=== PATIENT | male | born 1995 | race Caucasian/White ===

== ENCOUNTER 2017-04-21 06:35 | Emergency (ER) | payer BC ==
[2017-04-21] MEDS ORDERED: NS 0.9% 1000 ML* 1,000 ML IV ONE (06:55)
[2017-04-21] MEDS: Aspirin Low Dose CHEW TAB* 81 MG PO ONE ×2 (07:20→07:23)
--- NOTE | 2017-04-21 07:20 | ED ---
Keith Heredia,Otto, scribed for Sandra Rendon MD on 04/21/17 at 0701 . HPI Chest Pain - HPI Summary HPI Summary: This 21 y/o male presents to ED for acute midsternal CP since 1800 PM last evening. Pt had trouble sleeping due to chest pain. Deep breath makes pain worse. Pain is worse when he lies down. Upright position makes pain better. Pt reports positive FHx of [place] in maternal side of the family before the age of 50, and expresses concerns. He denies any PMHx, but does report that he has had prior episodes of similar CP while sick "with cold". Nonsmoker. Weekly drinker. Negative substance abuse. Flu vaccine is NOT UTD. Pt lives alone. Pt is a [employer] student. - History of Current Complaint Chief Complaint: EDChestPainROMI Hx Obtained From: Patient Onset/Duration: Started Hours Ago, Atraumatic, Still Present Time of Onset: 18:00 - 04/20/17 Timing: Constant, Lasting Hours Initial Severity: Moderate Current Severity: Mild Pain Intensity: 3 Pain Scale Used: 0-10 Numeric Chest Pain Location: Mid Sternal Chest Pain Radiates: No Character: Dull/Aching Aggravating Factor(s): Position - lying down makes pain worse, Deep Breaths Alleviating Factor(s): Upright Position Associated Signs and Symptoms: Positive: Chest Pain. Negative: Shortness of Breath, Fever, Diaphoresis, Nausea - Risk Factors TAD Risk Factors: Family Hx AMI/ACS Risk Factors: Family History - Allergy/Home Medications Allergies/Adverse Reactions: Allergies Allergy/AdvReac Type Severity Reaction Status Date / Time No Known Allergies Allergy Verified 04/21/17 06:39 PMH/Surg Hx/FS Hx/Imm Hx Previously Healthy: Yes Endocrine/Hematology History: Denies: Hx Diabetes Cardiovascular History: Denies: Hx Myocardial Infarction - Surgical History Surgery Procedure, Year, and Place: no surgical hx - Immunization History Date of Tetanus Vaccine: utd Date of Influenza Vaccine: none Infectious Disease History: No Infectious Disease History: Denies: Traveled Outside the US in Last 30 Days - Family History Known Family History: Positive: Cardiac Disease - Social History Occupation: Student - [employer] Student Lives: Alone Alcohol Use: Weekly Substance Use Type: Reports: None Smoking Status (MU): Never Smoked Tobacco Review of Systems Negative: Fever Positive: Chest Pain Negative: Shortness Of Breath Gastrointestinal: Negative Neurological: Negative Psychological: Normal All Other Systems Reviewed And Are Negative: Yes Physical Exam Triage Information Reviewed: Yes Vital Signs On Initial Exam: Initial Vitals Temp Pulse Resp BP Pulse Ox 97.8 F 98 16 157/91 97 04/21/17 06:42 04/21/17 06:42 04/21/17 06:42 04/21/17 06:42 04/21/17 06:42 Vital Signs Reviewed: Yes Appearance: Positive: Well-Appearing, No Pain Distress, Obese Skin: Positive: Warm, Skin Color Reflects Adequate Perfusion, Dry Head/Face: Positive: Normal Head/Face Inspection Eyes: Positive: EOMI, NESTOR ENT: Positive: Normal ENT inspection Neck: Positive: Supple, Nontender, No Lymphadenopathy Respiratory/Lung Sounds: Positive: Clear to Auscultation, Breath Sounds Present Cardiovascular: Positive: RRR, Pulses are Symmetrical in both Upper and Lower Extremities. Negative: Murmur, Rub, Leg Edema Left, Leg Edema Right Abdomen Description: Positive: Nontender, No Organomegaly, Soft. Negative: Bruit, Distended, Guarding, Hepatomegaly, McBurney's Point Tenderness, Peritoneal Signs, Pulsatile Mass, Splenomegaly Bowel Sounds: Positive: Present Musculoskeletal: Positive: Strength/ROM Intact. Negative: Edema Left, Edema Right Neurological: Positive: Sensory/Motor Intact, Alert, Oriented to Person Place, Time, Facial Symmetry, Speech Normal Psychiatric: Positive: Affect/Mood Appropriate - [place] Coma Scale Coma Scale Total: 15 Diagnostics - Vital Signs Vital Signs Temp Pulse Resp BP Pulse Ox 04/21/17 06:42 97.8 F 98 16 157/91 97 - Laboratory Lab Statement: Any lab studies that have been ordered have been reviewed, and results considered in the medical decision making process. - Radiology CXR Radiology Interpretation Completed By: Radiologist - Image pending at this moment (0700 AM). See EMR for official report - EKG 0647 Cardiac Rate: NL EKG Rhythm: Sinus Rhythm EKG Interpretation: Normal HERON conduction. [id number]. Normal axis. No STEMI Chest Pain Course/Dx - Course Course Of Treatment: 21 yo M with chest pain, +fam hx CAD/[place] before the age of 50 as only risk factor. EKG is normal. Care to Dr. Yee at change of shift with labs and xray pending. ASA 324mg given. - Chest Pain Differential Diagnosis/HQI/PQRI: Acute [place], ACS, Chest Wall, GI Disease, Lower Respiratory Infection, Pulmonary Embolism - Diagnoses Provider Diagnoses: Chest pain, Elevated BP without diagnosis of hypertension Discharge - Discharge Plan Condition: Stable Disposition: OTHER Discharge Disposition Comment: Signed out at shift change. Pending CXR and bloodwork. Referrals: [facility] [Primary Care Provider] - The documentation as recorded by the Keith silva Soohyun accurately reflects the service I personally performed and the decisions made by Justice hamilton Barbara J, MD.
[2017-04-21 07:22] LABS: Hematocrit 48 % (42-52); Hemoglobin 16.4 g/dl (14.0-18.0); Mean Corpuscular HGB Conc 34 g/dl (31-36); Mean Corpuscular Hemoglobin 29 pg (27-31); Mean Corpuscular Volume 86 fL (80-94); Mean Platelet Volume 9 um3 (7.4-10.4); Red Cell Distribution Width 13 % (10.5-15); White Blood Count 9.7 10^3/ul (3.5-10.8)
[2017-04-21] MEDS ORDERED: Ketorolac INJ* 30 MG/ML 1 ML VIAL IV PUSH ONE (07:23)
[2017-04-21 07:34] LABS: Albumin 4.4 g/dL (3.2-5.2); BUN/Creatinine Ratio 13.3 (8-20); Calcium 9.6 mg/dL (8.6-10.3); EGFR African American 124.2 (>60); EGFR Non-African American 96.6 (>60); Globulin 3.2 g/dL (2-4); Potassium 3.4 mmol/L (3.5-5.0); Total Bilirubin 0.7 mg/dL (0.2-1.0); Total Protein 7.6 g/dL (6.4-8.9)
[2017-04-21] MEDS ORDERED: Potassium Chlor TAB* 20 MEQ TAB.ER PO ONE (08:03)
--- NOTE | 2017-04-21 08:07 | RAD ---
HISTORY: Chest pain COMPARISONS: None VIEWS:1: Single frontal portable view of the chest at 7:05 AM FINDINGS: LINES AND TUBES: None. CARDIOMEDIASTINAL SILHOUETTE: The cardiomediastinal silhouette is normal for portable technique. PLEURA: The costophrenic angles are sharp. No pleural abnormalities are noted. LUNG PARENCHYMA: The lungs are clear. ABDOMEN: The upper abdomen is clear. There is no subphrenic gas. BONES AND SOFT TISSUES: No bone or soft tissue abnormalities are noted. IMPRESSION: NO ACTIVE CARDIOPULMONARY DISEASE.
[2017-04-21 08:08] VITALS: BP 134/91
[2017-04-21 08:08] LABS: TSH (Thyroid Stimulating Horm) 2.85 mcIU/mL (0.34-5.60)
--- NOTE | 2017-04-21 17:52 | ED ---
Mitesh Heredia Rebecca, scribed for Mateo Yee MD on 04/21/17 at 0724 . Progress - Progress Note Progress Note: Pt was signed out from Dr. Rendon at 0700 this morning. He is a 21 y/o M who presents to ED c/o CP. Pain began at 1800 last night and is characterized as tightness/a dull ache. Pain is midsternal with radiation upwards to "below my Loki's apple" and while sitting up, pain is 2/10, while laying down it is ranked 7/10. Reports pain is slightly reproducible upon deep breaths. Sx aggravated by laying down, alleviated by nothing. Additionally c/o nasal congestion secondary to "head cold." Denies fever, diaphoresis, SOB, N/V, syncope, post-nasal drip, sinus pain and sore throat. - Results/Orders Results/Orders: Physical Exam: VITAL SIGNS: Reviewed. GENERAL: ~Patient is a well-developed and nourished male who is lying comfortable in the stretcher. ~Patient is not in any acute respiratory distress. HEAD AND FACE: No signs of trauma. ~No ecchymosis, hematomas or skull depressions. He has some sinus congestion. EYES: PERRLA, EOMI x 2, No injected conjunctiva, no nystagmus. EARS: Hearing grossly intact. Ear canals and tympanic membranes are within normal limits. MOUTH: Oropharynx within normal limits. NECK: Supple, trachea is midline, no adenopathy, no JVD, no carotid bruit, no c- spine tenderness, neck with full ROM. CHEST: Symmetric, no tenderness at palpation LUNGS: Clear to auscultation bilaterally. No wheezing or crackles. CVS: Regular rate and rhythm, S1 and S2 present, no murmurs or gallops appreciated. ABDOMEN: Soft, non-tender. No signs of distention. No rebound no guarding, and no masses palpated. Bowel sounds are normal. EXTREMITIES: FROM in all major joints, no edema, no cyanosis or clubbing. NEURO: Alert and oriented x 3. No acute neurological deficits. Speech is normal and follows commands. SKIN: Dry and warm - EKG/XRAY/CT XRAY: chest Xray Comments: Radiologist - NO ACTIVE CARDIOPULMONARY DISEASE Re-Evaluation - Re-Evaluation First Eval Re-Evaluation Time: 10:07 Change: Improved Comment: After Toradol, pain is resolved, ranked 0/10. Course/Dx - Course Course Of Treatment: Pt was signed out from Dr. Rendon at 0700 this morning. He is a 21 y/o M who presents to ED c/o CP. Pain began at 1800 last night and is characterized as tightness/a dull ache. Pain is midsternal with radiation upwards to "below my Loki's apple" and while sitting up, pain is 2/10, while laying down it is ranked 7/10. Reports pain is slightly reproducible upon deep breaths. Sx aggravated by laying down, alleviated by nothing. Additionally c/o nasal congestion secondary to "head cold." Denies fever, diaphoresis, SOB, N/V, syncope, post-nasal drip, sinus pain and sore throat. Test results without any significant abnormality except potassium of 3.4 and CPK of 246. CXR negative for acute intrathoracic pathology. EKG is normal sinus rhythm at [address] elevations. Troponin x 2 are negative. The pt was given Toradol for the pain and all of his sx have resolved. He was also given IVF for the increase CPK. The pt is asymptomatic at this time. Pt was observed for approximately 3.5 hours in the ED and the sx did not return. Seeing as the pt does not have any comorbidities, the pt will be D/C to home with follow-up with PCP. Pt is hemodynamically stable and A&Ox3. I discussed all the findings and test results with the patient. Patient was instructed to return to the emergency room immediately if any of the symptoms return or worsens. Plan of care was discussed with the patient and understands and agrees. All questions were answered at patient satisfaction. There were no further complaints or concerns. Lung exam before discharge: CTA B/L. Good air exchange. No wheezing or crackles heard. CVS: S1 and S2 present. No murmurs appreciated. Patient is alert and oriented x 3. Patient is hemodynamically stable. Patient will be discharged home with follow up PCP in the next 2-3 days - Diagnoses Provider Diagnoses: Chest pain, Elevated BP without diagnosis of hypertension The documentation as recorded by the Mitesh silva Rebecca accurately reflects the service I personally performed and the decisions made by me, Mateo Yee MD.
== END 2017-04-21 10:18 | disposition home or self-care (01) ==
LOC: ED 06:35
DX: R07.9 Chest pain, unspecified (principal); R03.0 Elevated blood-pressure reading, without diagnosis of hypertension
CPT/HCPCS: 36415; 71010; 80053; 82550; 82553; 83605; 83735; 84443; 84484; 85025; 85379; 85610; 85730; 93005; 99283; A9270-GY; J1885

== ENCOUNTER 2017-06-08 04:49 | Inpatient (IN) | payer BC ==
[2017-06-08 05:37] LABS: Hematocrit 47 % (42-52); Hemoglobin 16.5 g/dl (14.0-18.0); Mean Corpuscular HGB Conc 36 g/dl (31-36); Mean Corpuscular Hemoglobin 30 pg (27-31); Mean Corpuscular Volume 84 fL (80-94); Mean Platelet Volume 9 um3 (7.4-10.4); Red Blood Count 5.54 10^6/ul (4.0-5.4); Red Cell Distribution Width 13 % (10.5-15); White Blood Count 9.8 10^3/ul (3.5-10.8)
[2017-06-08 05:54] LABS: Urine Bacteria Absent (Absent); Urine Bilirubin Negative (Negative); Urine Glucose Negative (Negative); Urine Nitrite Negative (Negative)
[2017-06-08 05:56] LABS: Benzodiazepine Urine Screen None Detected (None Detect)
[2017-06-08 06:00] LABS: ALT 71 U/L (7-52); Acetaminophen < 15 mcg/mL; Albumin 4.8 g/dL (3.2-5.2); Alcohol 73 mg/dL (<10); Alkaline Phosphatase 75 U/L (34-104); BUN/Creatinine Ratio 8.3 (8-20); Blood Urea Nitrogen 9 mg/dL (6-24); CO2 Carbon Dioxide 24 mmol/L (22-32); Calcium 9.4 mg/dL (8.6-10.3); Chloride 102 mmol/L (101-111); EGFR African American 109.8 (>60); EGFR Non-African American 85.4 (>60); Globulin 2.8 g/dL (2-4); Glucose 106 mg/dL (70-100); Salicylate < 2.50 mg/dL (<30); Sodium 136 mmol/L (133-145); Total Protein 7.6 g/dL (6.4-8.9)
[2017-06-08 06:02] LABS: Anion Gap 10 mmol/L (2-11)
[2017-06-08 06:11] LABS: TSH (Thyroid Stimulating Horm) 1.23 mcIU/mL (0.34-5.60)
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
[2017-06-08] MEDS ORDERED: Acetaminophen TAB* 325 MG PO ONE (13:20)
[2017-06-08] MEDS ORDERED: Acetaminophen TAB* 325 MG ONE (13:23)
--- NOTE | 2017-06-08 16:05 | ED ---
Natividad Heredia Alfonso, scribed for Mateo Yee MD on 06/08/17 at 1605 . Progress - Progress Note Progress Note: This patient was signed out from Dr. Ziegler, pending disposition, awaiting MHE. After MHE, Dr. Camilo. The patients condition is stable and he will be admitted to [facility] with Dx of depressive disorder. - Consult/PCP Time Called: 13:53 Course/Dx - Diagnoses Provider Diagnoses: Depressive disorder The documentation as recorded by the Natividad silva Alfonso accurately reflects the service I personally performed and the decisions made by Joselito hamilton Walter, MD.
[2017-06-08] MEDS ORDERED: Al Hydrox/Mg Hydrox/Simet LIQ* 30 ML UDC PO PRN (17:05)
[2017-06-08] MEDS ORDERED: Acetaminophen TAB* 325 MG PO PRN (17:05)
[2017-06-09] MEDS: Vitamin THERAPEUTIC TAB PO SCH (09:45)
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
[2017-06-10 08:33] VITALS: BP 112/65
[2017-06-10] MEDS: Vitamin THERAPEUTIC TAB PO SCH (09:44)
[2017-06-10] MEDS ORDERED: Calcium Carbonate CHEW TAB* 500 MG (TUMS) PO PRN (10:43)
--- NOTE | 2017-06-10 15:20 | DS ---
CC: [facility]* DISCHARGE SUMMARY: DATE OF ADMISSION: 06/08/2017. DATE OF DISCHARGE: 06/10/2017. SUPERVISING PSYCHIATRIST: Prashanth Leung MD* (dictated by MICHELLE Tadeo) . DISCHARGE DIAGNOSIS: Adjustment disorder with emotional overlay, rule out posttraumatic stress disorder. CONDITION AT THE TIME OF DISCHARGE: Improved. 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 He reports this will also help him to refrain from alcohol use and states understanding that alcohol is depressant and likely contributory to emotional reactions in the past few days. He spoke with his parents yesterday and he said that this went well. His father had offered to come to [place] and Ronni told him that that was not necessary and father has asked him to call him every day, which he will do, and he has plans to go home over the weekend break. Ronni denies suicidal ideation, depression, or anxiety. He reported indigestion and requested to be able to use Tums. Denies need otherwise for medications. He was encouraged to follow up with [facility] and has an appointment today at 3:40 p.m. MENTAL STATUS EXAM: The patient is well appearing, adequately groomed and dressed in his own clothing. He has short brown hair and moderate built, somewhat overweight. He appears stated age. He is pleasant and cooperative. He answers questions fully. No known psychomotor activity abnormality noted. He is alert and oriented x3. His concentration is good. His recall is 3/3. His mood is "pretty good." His affect is full range. Speech is regular rate and rhythm with a mild lisp noted. Thought process is logical and goal directed. Content of thought is negative for SI, SIB urges, HI, or . He denies A/V hallucinations, preoccupations, obsessions or delusions. His insight is good. His judgment is good. His fund of knowledge is excellent. DISCHARGE INSTRUCTIONS: Instructions were given to the patient by nursing staff. A. Medications: None. B. Diet: Regular. C. Activity: Ambulation as tolerated. Tobacco cessation is not applicable. No pending labs or diagnostic studies at the time of discharge. D. Followup care: The patient will return to [facility] and he has an appointment today at 3:40 p.m. He will follow up with [facility] in case of need for medical care. HOSPITAL COURSE: A. Reason for admission: The patient went for a walk and was standing on a bridge. He contemplated jumping and this scared him. He called EMS and was brought to the emergency department. B. Psychiatric treatment rendered: The patient was admitted to the adult behavioral services unit on voluntary status. His code status is full. Safety checks were done every 15 minutes and the patient was encouraged to participate in supportive milieu and individual sessions with staff along with group psychoeducation. He participated fully. He was interactive with staff and peers. His observation was decreased to every 30 minutes. He was in behavioral control. He denied suicidal ideation. He reported a positive effect from visitation from friends as well as unit programing. He was able to take a break from academic course work and was also motivated to return to be able to use his laptop for course work as soon as possible. The patient slept well except for external circumstances such as having roommate. He was participated in milieus and groups. Due to obligation to treat in least restrictive setting, discharge was agreed upon by treatment team. The patient retains mildly elevated risk for suicide due to recent circumstances, but he denies that this is concerning to him. He states that he was frightened by those thoughts. He is agreeable to return to [facility] for outpatient counseling and is knowledgeable about communities, resources available. This information is also given to him and his discharge instructions. MICHELLE TADEO [id number]/CPS #: [id number] PATO
== END 2017-06-10 13:00 | disposition home or self-care (01) | DRG 755 ==
LOC: ED 04:49 → BSU 16:31
PROVIDERS: ADMIT Psychiatry & Neurology Psychiatry; ATTEND Psychiatry & Neurology Psychiatry
DX: F43.25 Adjustment disorder with mixed disturbance of emotions and conduct (principal)
CPT/HCPCS: 36415; 80053; 80307; 80320; 80329; 81003; 81015; 84443; 85025; 99222; 99238; A9270-GY; G0480